=== PATIENT | female | born 1990 | race Caucasian/White ===

== ENCOUNTER → 2016-04-05 | Outpatient (CLI) | payer BC ==
[2016-04-05 18:39] LABS: BASO % 0.3 % (0.0-1.0); EOS # 0.1 K/mm3 (0.0-0.50); EOS % 0.9 % (0.0-3.0); LARGE UNSTAINED CELL # 0.1 K/mm3 (0.0-0.4); LARGE UNSTAINED CELL % 1.4 % (0.0-4.0); LYMPH # 1.8 K/mm3 (1.5-6.5); LYMPH % 18.8 % (24.0-44.0); MEAN CORPUSCULAR HEMOGLOBIN 32.7 pg (27.0-33.0); MEAN CORPUSCULAR HGB CONC 34.1 g/dl (32.0-36.5); MONO # 0.4 K/mm3 (0.0-0.8); MONO % 4.5 % (0.0-5.0); NEUTROPHILS # 7.2 K/mm3 (1.8-7.7); NEUTROPHILS % 74.1 % (36.0-66.0); PLATELET COUNT, AUTOMATED 313 k/mm3 (150-450); RED CELL DISTRIBUTION WIDTH 11.1 % (11.5-14.5); WHITE BLOOD COUNT 9.7 K/mm3 (4.0-10.0)
[2016-04-06 08:31] LABS: CONTROL LINE INT CTR LINE PRESENT; HIV SCRN NEGATIVE (NEGATIVE); HIV SCRN1 NEGATIVE (NEGATIVE)
[2016-04-07 08:50] LABS: HBsAg Prenatal NEGATIVE (NEGATIVE)
== END ==
LOC: M SMT 13:51
PROVIDERS: ATTEND Obstetrics & Gynecology
DX: Z34.81 Encounter for supervision of other normal pregnancy, first trimester (principal)

== ENCOUNTER → 2016-06-16 | Outpatient (CLI) | payer BC ==
--- NOTE | 2016-06-16 14:29 | REP ---
Clinical: Anatomical evaluation. Comparison: None . Findings: Examination demonstrates a single live intrauterine in breech presentation. motion is identified by technologist. Placenta is noted anteriorly and grade zero without evidence for placenta previa or abruption. Amniotic fluid volume is normal. Cervix measures 5.1 cm in length and appears closed. No evidence for nuchal cord. Gestational age by LMP 18 weeks 3 days with JEREMY 11/14/2016 . Gestational age by current measurements 18 weeks 5 days with JEREMY 11/12/2016 . FHR equals 144 beats per minute. BPD 4.5 cm 19 weeks 3 days HC 15.7 cm 18 weeks 4 days AC 13.4 cm 18 weeks 6 days FL 2.8 cm 18 weeks 4 days HL 2.9 cm 19 weeks 3 days HC/AC ratio 1.17 Estimated weight 256 grams ( 60th percentile). Anatomical assessment demonstrates normal structures including cranium, choroid plexus, cavum, cerebellum/posterior fossa, facial features, lungs, diaphragm, stomach, cord insertion/three-vessel cord, kidneys/bladder, spine, and extremities. Impression: Single live intrauterine in breech presentation. Limited evaluation of the heart and cardiac ventricular outflow tracts. Anatomical assessment is otherwise complete and normal. Signed by Kaleb Hermosillo MD 06/16/2016 02:20 P
== END ==
LOC: M SMT 13:01
PROVIDERS: ATTEND Advanced Practice Midwife
DX: Z34.82 Encounter for supervision of other normal pregnancy, second trimester (principal)

== ENCOUNTER → 2016-06-30 | Outpatient (CLI) | payer BC ==
--- NOTE | 2016-06-30 15:19 | REP ---
Obstetric ultrasound for follow-up of anatomy: The prior study dated 06/16/2016 did not adequately demonstrate the heart, cardiac ventricular outflow tracts. There is a single intrauterine gestation in a breech presentation. There is movement and cardiac activity, the heart rate is 144 beats per minute. The placenta is anterior. There is no placenta previa or abruptio. The placenta demonstrates grade zero maturity. The amniotic fluid volume subjectively is normal. The cervix is 4.0 cm length. Based on today's ultrasound the gestational age is 20-week 6 days with an JEREMY of 11/11/2016. The gestational age based on the first ultrasound during this gestation is 20 weeks 3 days and by LMP 20 weeks 3 days. The weight is for an 29 grams (0 pounds, 15 ounces). This is the 87th percentile for 20 weeks 3 days. The four-chamber view of the heart and the cardiac right and left ventricular outflow tracts are adequately demonstrated and are unremarkable. The remainder of the anatomy is unremarkable and unchanged. Impression: There are no anomalies. Signed by Betito Wilkinson MD 06/30/2016 03:11 P
== END ==
LOC: M SMT 13:45
PROVIDERS: ATTEND Obstetrics & Gynecology
DX: Z34.82 Encounter for supervision of other normal pregnancy, second trimester (principal)

== ENCOUNTER → 2016-08-14 | Outpatient (CLI) | payer BC ==
[2016-08-14 13:07] LABS: BASO % 0.3 % (0.0-1.0); EOS # 0.1 K/mm3 (0.0-0.50); EOS % 0.8 % (0.0-3.0); LARGE UNSTAINED CELL # 0.2 K/mm3 (0.0-0.4); LARGE UNSTAINED CELL % 1.2 % (0.0-4.0); LYMPH # 1.6 K/mm3 (1.5-6.5); LYMPH % 12.1 % (24.0-44.0); MEAN CORPUSCULAR HEMOGLOBIN 32.3 pg (27.0-33.0); MEAN CORPUSCULAR HGB CONC 33.5 g/dl (32.0-36.5); MEAN CORPUSCULAR VOLUME 96.4 fl (80.0-96.0); MONO # 0.5 K/mm3 (0.0-0.8); MONO % 4.1 % (0.0-5.0); NEUTROPHILS # 10.2 K/mm3 (1.8-7.7); NEUTROPHILS % 81.7 % (36.0-66.0); PLATELET COUNT, AUTOMATED 251 k/mm3 (150-450); RED CELL DISTRIBUTION WIDTH 12.7 % (11.5-14.5); WHITE BLOOD COUNT 12.4 K/mm3 (4.0-10.0)
== END ==
LOC: M SMT 10:35
PROVIDERS: ATTEND Advanced Practice Midwife
DX: Z34.83 Encounter for supervision of other normal pregnancy, third trimester (principal)

== ENCOUNTER → 2016-10-16 | Outpatient (REF) | payer OTHER, BC ==
[~2016-10-16] MED LIST: ACET50TA PO; FISH1000 PO; FOLI800C PO; HYDR-3713 PO; MOTR200T44 PO; OXYC1TAB23 PO; PRENTAB9 PO; RANI150T PO
== END ==
LOC: M LAB REF 17:14
PROVIDERS: ATTEND Obstetrics & Gynecology
DX: Z34.83 Encounter for supervision of other normal pregnancy, third trimester (principal)

== ENCOUNTER 2016-11-20 20:03 | Inpatient (IN) | payer OTHER, BC ==
[~2016-11-20] VITALS: Ht 170.2 cm; Wt 82.0 kg
[~2016-11-20 20:03] MED LIST changes: -ACET50TA PO; -FISH1000 PO; -FOLI800C PO; -MOTR200T44 PO; -OXYC1TAB23 PO; -PRENTAB9 PO; -RANI150T PO
[2016-11-20] MEDS ORDERED: FISH1000 PO (20:42)
[2016-11-20] MEDS ORDERED: FOLI800C PO (20:42)
[2016-11-20] MEDS ORDERED: PRENTAB9 PO (20:42)
[2016-11-20] MEDS ORDERED: RANI150T PO (20:42)
[2016-11-20] MEDS ORDERED: ACET50TA PO (20:42)
[2016-11-20 21:03] LABS: MEAN CORPUSCULAR HEMOGLOBIN 32.6 pg (27.0-33.0); MEAN CORPUSCULAR HGB CONC 34.2 g/dl (32.0-36.5); MEAN CORPUSCULAR VOLUME 95.3 fl (80.0-96.0); RED CELL DISTRIBUTION WIDTH 13.1 % (11.5-14.5); WHITE BLOOD COUNT 13.7 K/mm3 (4.0-10.0)
[2016-11-20 21:11] VITALS: BP 121/82
[2016-11-20 22:26] VITALS: BP 128/74
[2016-11-20 22:45] VITALS: BP 130/91
--- NOTE | 2016-11-20 23:01 | HPE ---
DATE OF ADMISSION: 11/20/2016 26-year-old G-2, P-0-0-1-0 female with 48 6/7 weeks gestation by last menstrual period (LMP) consistent with 8 week ultrasound, estimated date of confinement (EDC) 11/14/2016 presents with regular contractions every 1 and 2 minutes for the last several hours. She denies vaginal bleeding. There is good movement. Contractions increased with intensity. COURSE: The patient received care at 8 weeks gestation, 04/07/2016. Her first trimester blood pressure is 122/76, weight 160 pounds. She developed pubic symphysis diastasis at 31 weeks gestation and required pain management. This resolved as the went on. MEDICAL HISTORY: Noncontributory. SURGERIES: Dilatation and curettage (D C) procedure. ALLERGIES: PENICILLIN. SOCIAL HISTORY: The patient is . She denies cigarettes, alcohol or drug use. FAMILY HISTORY: Noncontributory. PHYSICAL EXAMINATION: Blood pressure 124/70, pulse 84. She appears uncomfortable. HEAD AND NECK EXAM: Normal. LUNGS: Clear. HEART: Regular rate and rhythm. ABDOMEN: Nontender, , heart tones category I. Sterile vaginal exam: 3 cm, 80% effaced, -2 station, vertex intact. EXTREMITIES: Nontender. LABORATORY: Blood type O positive. Rubella immune. RPR nonreactive. Hepatitis B and C negative. Human immunodeficiency virus (HIV) negative. Group B streptococcus (GBS) negative on 10/16/2016 ASSESSMENT: 26-year-old, G-2, P-0-0-1-0 female at 48 6/7 weeks gestation presents in early labor. The patient is admitted on 11/20/2016.
[2016-11-21] VITALS (38 sets, daily range): BP systolic 111–149; BP diastolic 58–99
[2016-11-21] MEDS ORDERED: PROMETHAZINE INJ 25 MG/ML VIAL (J2550) IM ONE (00:15)
[2016-11-21] MEDS ORDERED: BUTORPHANOL 2 MG/ML INJ (J0595) IV ONE (00:15)
[2016-11-21] MEDS ORDERED: FENTANYL 2MCG/ML ROPIVACAINE 0.2% IN 0.9% NACL 200ML IVBAG As Ordered ONE (02:22)
[2016-11-21] MEDS ORDERED: REFRIGERATOR IV KEYS XX PRN (03:45)
[2016-11-21] MEDS ORDERED: EPIDURAL COMMENT XX SCH (03:45)
[2016-11-21] MEDS ORDERED: ePHEDrine SULFATE 25 MG/5 ML(5MG/ML) SYRINGE IV PRN (03:45)
[2016-11-21] MEDS ORDERED: FENTANYL/ROPIVACAINE/NACL BAG 200 ML EPIDURAL SCH (03:45)
[2016-11-21] MEDS ORDERED: LACTATED RINGER'S 1000 ML IV PRN (03:45)
[2016-11-21] MEDS ORDERED: EPIDURAL/PCA KEYS XX PRN (03:45)
[2016-11-21] MEDS ORDERED: diphenhydrAMINE INJ 50MG/ML VIAL (J1200) IV PRN (03:45)
[2016-11-21] MEDS ORDERED: ONDANSETRON 4MG/2ML VIAL (J2405) IV PRN ×2 (03:45→10:45)
[2016-11-21] MEDS ORDERED: NALOXONE INJ 0.4 MG/1 ML VIAL (J2310) IV PRN (03:45)
[2016-11-21] MEDS ORDERED: OXYTOCIN DRIP 30 UNITS in APPROPRIATE DILUENT 1 EA IV SCH ×2 (04:15→11:00)
[2016-11-21] MEDS ORDERED: MEASLES,MUMPS,RUBELLA VACCINE INJ (MMR-II) (90707) SC SCH (09:00)
[2016-11-21] MEDS ORDERED: RHOGAM 300 MCG (1500 IU) INJ (J2790) IM SCH (09:00)
[2016-11-21 10:15] LABS: CORD GAS ABE A -13.8; CORD GAS HCO3 A 19.4 MEQ/L; CORD GAS PCO2 A 79.3 mmHg; CORD GAS PH A 7.006 UNITS; CORD GAS PO2 A 26.3 mmHg; CORD GAS TCO2 A 21.8 MEQ/L
[2016-11-21 10:17] LABS: CORD GAS ABE V -10.7; CORD GAS HCO3 V 20.1 MEQ/L; CORD GAS O2 SAT V 28.3 %; CORD GAS PH V 7.109 UNITS; CORD GAS PO2 V 19.8 mmHg; CORD GAS SBC V 14.7 MEQ/L; CORD GAS TCO2 V 22.1 MEQ/L
[2016-11-21] MEDS ORDERED: PROMETHAZINE 25 MG TAB PO PRN (10:45)
[2016-11-21] MEDS ORDERED: ACETAMINOPHEN 500 MG TAB PO PRN (10:45)
[2016-11-21] MEDS ORDERED: DIBUCAINE 1% OINTMENT 30GM TOP PRN (10:45)
[2016-11-21] MEDS: IBUPROFEN 800 MG TAB PO PRN (10:53)
[2016-11-21] MEDS: PRENATAL VITAMINS CHEWABLE TABLET PO SCH (10:53)
[2016-11-21] MEDS ORDERED: LR 1,000 ML IV SCH (11:00)
[2016-11-21] MEDS ORDERED: SLF 3 ML SYR IV PRN (14:00)
[2016-11-21] MEDS ORDERED: SLF 3 ML SYR IV SCH (14:00)
[2016-11-21] MEDS ORDERED: PERCOCET 5MG/325MG TAB PO PRN (15:30)
[2016-11-21] MEDS: PERCOCET 5MG/325MG TAB PO PRN ×2 (15:45→21:24)
[2016-11-21] MEDS ORDERED: DOCUSATE SODIUM 100 MG CAP PO PRN (21:00)
[2016-11-22] MEDS: IBUPROFEN 800 MG TAB PO PRN ×2 (04:08→11:59)
[2016-11-22 06:16] VITALS: BP 136/74
[2016-11-22] MEDS: PRENATAL VITAMINS CHEWABLE TABLET PO SCH (07:54)
[2016-11-22] MEDS ORDERED: OXYC1TAB23 PO (11:34)
[2016-11-22] MEDS ORDERED: MOTR200T44 PO (11:34)
== END 2016-11-22 13:40 | disposition home or self-care (01) | DRG 775 ==
LOC: M LDO 20:03 → M LDI 20:22 → M OBS 11-21 12:54
PROVIDERS: ADMIT Specialist; ATTEND Specialist
PROC: 10E0XZZ Delivery of Products of Conception, External Approach (ICD-10-PCS; principal; 2016-11-21)
PROC: 0HQ9XZZ Repair Perineum Skin, External Approach (ICD-10-PCS; 2016-11-21)
DX: O48.0 Post-term pregnancy (principal); Z37.0 Single live birth; Z3A.41 41 weeks gestation of pregnancy; Z88.0 Allergy status to penicillin; O70.0 First degree perineal laceration during delivery